=== PATIENT | female | born 1975 | race Caucasian/White ===

== ENCOUNTER 2016-09-06 11:54 | Outpatient (CLI) ==
[2016-02-01 12:25] VITALS: BMI 16.2
[2016-09-06 12:56] LABS: BILIRUBIN,URINE Negative (NEGATIVE); KETONES,URINE Negative (NEGATIVE); LEUKOCYTE ESTERASE ,URINE Negative (NEGATIVE); NITRITE,URINE Negative (NEGATIVE); PH,URINE 5.5 (5-9); PROTEIN,URINE Negative (NEGATIVE); URINE, BLOOD 1+ (NEGATIVE)
[2016-09-06 13:00] LABS: ADD URINE MICROSCOPIC YES
== END 2016-09-06 11:55 | disposition home or self-care (01) ==
LOC: LAB 11:54
PROVIDERS: ATTEND Nurse Practitioner Family
DX: N39.0 Urinary tract infection, site not specified (principal)
CPT/HCPCS: 81001

== ENCOUNTER 2017-03-30 12:53 | Outpatient (CLI) ==
[2016-02-01 12:25] VITALS: BMI 16.2
--- NOTE | 2017-03-30 13:52 | CT ---
EXAM: CT of the abdomen pelvis without contrast History: Abdominal pain. Comparison: CT abdomen pelvis 06/12/2014 Technique: Multiplanar CT images through the abdomen pelvis were obtained without the administration of IV contrast Findings: Lung bases are free of consolidation. No acute osseous abnormalities. There are mild to moderate atherosclerotic vascular calcifications of the abdominal aorta. No renal stones and no hydronephrosis. No focal liver or splenic lesions. No discrete gallstones identified by CT. No peripancreatic inflammation. Adrenal glands are unremarkable. No dilated loops of bowel. Stomach is moderately distended with fluid and debris. The appendix is not dilated or inflamed. Sc attered colonic stool. No bladder wall thickening. Uterus is not seen. No free air. No ascites. Impression: 1. No acute intra-abdominal or pelvic process. 2. Atherosclerotic vascular disease.
== END 2017-03-30 12:54 | disposition home or self-care (01) ==
LOC: RAD 12:53
PROVIDERS: ATTEND Nurse Practitioner Family
DX: R10.817 Generalized abdominal tenderness (principal); R10.9 Unspecified abdominal pain

== ENCOUNTER 2017-03-31 12:44 | Outpatient (CLI) ==
[2016-02-01 12:25] VITALS: BMI 16.2
--- NOTE | 2017-04-03 08:59 | MAMMO ---
EXAM: Bilateral digital screening mammogram History: Baseline screening Findings: MLO and CC views of bilateral breasts demonstrate heterogeneously dense breast parenchyma which can obscure small lesions. Well circumscribed probably benign bilateral nodular densities. Be nign bilateral breast calcifications. No architectural distortions Impression: Probably benign bilateral nodular densities. Recommend 6-month follow-up bilateral mamm ogram to document stability. BIRADS 3
== END 2017-03-31 12:45 | disposition home or self-care (01) ==
LOC: RAD 12:44
PROVIDERS: ATTEND Nurse Practitioner Family
DX: Z12.31 Encounter for screening mammogram for malignant neoplasm of breast (principal)
CPT/HCPCS: 77067

== ENCOUNTER 2017-04-05 07:42 | Outpatient (CLI) ==
[2016-02-01 12:25] VITALS: BMI 16.2
[2017-04-05 08:08] LABS: BASOPHILS % (AUTO) 0.5 % (0.0-3.0); EOSINOPHILS # (AUTO) 0.1 K/ul (0.0-0.7); EOSINOPHILS % (AUTO) 1.3 % (0.0-7.0); HEMATOCRIT 38.9 % (37.0-47.0); HEMOGLOBIN 13.1 g/dl (12.0-16.0); LYMPHOCYTES # (AUTO) 2.9 K/uL (0.60-3.4); LYMPHOCYTES % (AUTO) 48.4 (10.0-50.0); MEAN CORPUSCULAR HEMOGLOBIN 29.9 pg (27.0-31.0); MEAN CORPUSCULAR HGB CONC 33.7 (31.8-35.4); MEAN CORPUSCULAR VOLUME 88.8 fl (81.0-99.0); MONOCYTES # (AUTO) 0.6 K/uL (0.4-2.0); NEUTROPHILS # (AUTO) 2.4 K/ul (2.0-6.9); NEUTROPHILS % (AUTO) 39.8; PLATELET COUNT 193 10^3/uL (140-440); RED BLOOD COUNT 4.38 10^6/ul (4.20-5.40); WHITE BLOOD COUNT 6.07 K/ul (4.6-10.2)
[2017-04-05 08:48] LABS: ALBUMIN 3.6 g/dL (3.4-5.0); ALBUMIN/GLOBULIN RATIO 1.13; ANION GAP 12.5; BILIRUBIN,TOTAL 0.43 mg/dL (0.00-1.20); BUN/CREATININE RATIO 12.85; CALCIUM 9.6 mg/dL (8.2-10.2); CHOL/HDL RATIO 3.7 (4.5-5.5); CREATININE 0.7 mg/dL (0.60-1.30); POTASSIUM 4.5 mmol/L (3.5-5.10); TOTAL PROTEIN 6.8 g/dL (6.4-8.2)
== END 2017-04-05 07:43 | disposition home or self-care (01) ==
LOC: LAB 07:42
PROVIDERS: ATTEND Nurse Practitioner Family
DX: R10.9 Unspecified abdominal pain (principal); R10.817 Generalized abdominal tenderness; Z72.0 Tobacco use
CPT/HCPCS: 36415; 80053; 80061; 84443; 85025

== ENCOUNTER 2017-08-04 07:34 | Outpatient (CLI) ==
[2016-02-01 12:25] VITALS: BMI 16.2
--- NOTE | 2017-08-04 08:27 | US ---
EXAM: ULTRASOUND ABDOMEN COMPLETE HISTORY: Nausea, abdominal pain FINDINGS: Can scale ultrasound and color Doppler was performed. The liver size was measured at about 10 cm, w ithin normal limits. The liver parenchyma demonstrated normal sonographic appearance without evidence of intrahepatic biliary dilatation or focal lesion. Patent and hepatopedal main portal vein. No evidence of gallbladder stones or sludge. Gallbladder wall thickness was normal at 0.18 centimete rs and the common duct diameter was normal at 0.3 centimeters. The visualized portions of the pancreas appeared grossly unremarkable. The visualized aorta and infer ior vena cava had grossly normal caliber. Spleen appeared normal sonographically and measured normal at 8.0 cm. The right kidney measured 9.9 cm and the left kidney 9.1 cm. Renal cortical volume and echogenicity was within normal limits for age. No hydronephrosis seen. IMPRESSION: Findings within normal limits sonographically.
== END 2017-08-04 07:35 | disposition home or self-care (01) ==
LOC: RAD 07:34
PROVIDERS: ATTEND Physician Assistant
DX: R10.9 Unspecified abdominal pain (principal)

== ENCOUNTER 2017-08-08 07:48 | Outpatient (CLI) ==
[2016-02-01 12:25] VITALS: BMI 16.2
--- NOTE | 2017-08-08 10:54 | CT ---
EXAM: CT abdomen pelvis with and without contrast HISTORY: Abdominal pain after bowel movement. Patient with history of endometriosis, hysterectomy a nd previous surgery for adhesion removal. COMPARISON: Abdominal ultrasound 08/04/[address] abdomen and 2016 with multiple priors TECHNIQUE: Serial axial images of the abdomen pelvis were performed before and after 100 mL is of Om nipaque IV contrast was administered. These were obtained from the lung bases through the inferior p be. FINDINGS: The lung bases are clear. The liver is unremarkable. No focal hepatic lesion. The gallbladder is normal. The adrenal glands are normal. Kidneys are normal. The spleen is normal. The pancreas is unremarkable. Stomach is mi ldly distended. Small bowel in the abdomen pelvis is unremarkable with no evidence of obstruction. The colon is unrem arkable with a decompressed cecum. There is no free fluid, free air or lymphadenopathy in the pelvis . There has been a hysterectomy. Urinary bladder is unremarkable. The osseous structures are unrema rkable. IMPRESSION: 1. No acute intra-abdominal or pelvic process to account for patient's symptoms. 2. Changes of prior hysterectomy.
== END 2017-08-08 07:49 | disposition home or self-care (01) ==
LOC: RAD 07:48
PROVIDERS: ATTEND Physician Assistant
DX: R10.9 Unspecified abdominal pain (principal)

== ENCOUNTER 2017-12-17 18:35 | Emergency (ER) | payer OTHER ==
[2017-12-17 18:46] VITALS: BP 111/76; TEMP 99.2; BMI 17.2
--- NOTE | 2017-12-17 19:23 | ED.PDOC ---
General ED Provider: Dr. PATITO BANERJEE-ER Chief Complaint: Foot Pain/Injury Stated Complaint: i fell -my foot and ankle hurt--- Time Seen by Physician: 18:40 Mode of Arrival: Wheelchair Information Source: Patient Exam Limitations: No limitations Primary Care Provider: JC MATIAS Nursing and Triage Documentation Reviewed and Agree: Yes Reviewed sepsis parameters & appropriate labs ordered?: Yes System Inflammatory Response Syndrome: Not Applicable Sepsis Protocol: For patient's 13 years and over: Temp is 96.8 and below OR 101 and greater Pulse >90 BPM Resp >20/minute Acutely Altered Mental Status Are patient's symptoms suggestive of a new infection, such as: -Pneumonia -Skin, Soft Tissue -Endocarditis -UTI -Bone, Joint Infection -Implantable Device -Acute Abdominal Infection -Wound Infection -Meningitis -Blood Stream Catheter Infection -Unknown Musculoskeletal Complaint Exam - Ankle/Foot Complaint/Exam Location of Injury: Reports: Right, Ankle, Foot Mechanism of Injury: Reports: Trauma Symptoms Are: Reports: Still present Onset of Pain: Reports: Immediate Initial Severity: Mild Current Severity: Mild Location: Reports: Discrete Character: Reports: Dull, Aching Alleviating: Reports: None Aggravating: Reports: Movement, Weight bearing, Prolonged standing Able to Bear Weight: Yes Associated Signs and Symptoms: Reports: Swelling, Bruising Lower Extremity Findings: Present: Swelling, Ecchymosis, Tenderness, Limited range of motion Achilles Tendon Abnormality: No Tenderness: Present: Medial malleolus, Lateral malleolus, Heel, Midfoot Limited Range of Motion: Present: Inversion, Eversion, Dorsiflexion, Plantarflexion Differential Diagnosis: Contusion, Closed Fracture Review of Systems - Review Of Systems Constitutional: Reports: No symptoms Eyes: Reports: No symptoms Ears, Nose, Mouth, Throat: Reports: No symptoms Respiratory: Reports: No symptoms Cardiac: Reports: No symptoms GI: Reports: No symptoms : Reports: No symptoms Musculoskeletal: Reports: Joint swelling, Muscle pain Skin: Reports: No symptoms Neurological: Reports: No symptoms Endocrine: Reports: No symptoms Hematologic/Lymphatic: Reports: No symptoms All Other Systems: Reviewed and Negative Past Medical History - Past Medical History Previously Healthy: Yes Endocrine: Reports: None Cardiovascular: Reports: None Respiratory: Reports: None Hematological: Reports: None Gastrointestinal: Reports: None Genitourinary: Reports: None Neuro/Psych: Reports: Seizure Musculoskeletal: Reports: None Cancer: Reports: None Last Menstrual Period: hysterectomy - Surgical History General Surgical History: Reports: Hysterectomy - Family History Family History: Reports: Unknown - Social History Smoking Status: Current every day smoker, Light tobacco smoker Hx Substance Use: No Alcohol Screening: None - Immunizations Tetanus Shot up to Date: No Physical Exam - Physical Exam Appearance: Well-appearing, No pain distress, Well-nourished Pain Distress: Mild Eyes: MEETA, EOMI, Conjunctiva clear ENT: Ears normal, Nose normal, Oropharynx normal Neck: Supple Respiratory: Airway patent, Breath sounds clear, Breath sounds equal, Respirations nonlabored Cardiovascular: RRR, Pulses normal, No rub, No murmur GI/: Soft, Nontender, No masses, Bowel sounds normal, No Organomegaly Musculoskeletal: Limited ROM Skin: Warm Neurological: Sensation intact Psychiatric: Affect appropriate, Mood appropriate Interpretation - Radiology Interpretation Radiology Interpretation By: Radiologist Radiology Results: Positive Exam Interpreted: CT Scan Procedures - Splinting Location: right foot Hand-Made Type: Orthoglass Splint: Posterior walking Pre-Proc Neuro Vasc Exam: Normal Post-Proc Neuro Vasc Exam: Normal Critical Care Note - Critical Care Note Total Time (mins): 0 Course - Course Orders, Labs, Meds: Orders Category Date Time Status CRUTCHES [ED CRUTCHES] .ONCE EMERGENCY 12/17/17 20:00 Active Ice [ED APPLY ICE AFFECTED AREA] .ONCE EMERGENCY 12/17/17 18:41 Active Splint [ED SPLINT APPLICATION] .ONCE EMERGENCY 12/17/17 19:59 Active Hydrocodone Bit/Acetaminophen [[place] 7.5-325] MEDS 12/17/17 19:59 Discontinued 1 tab PO ONCE STA CT ANKLE RIGHT WO CONTRAST Stat RADS 12/17/17 18:[address] CERVICAL SPINE W/O CONTRAST Stat RADS 12/17/17 19:[address] FOOT RIGHT WITHOUT CONTRAST Stat RADS 12/17/17 18:[address] HEAD W/O CONTRAST Stat RADS 12/17/17 19:25 Completed Medications Discontinued Medications Generic Name Dose Route Start Last Admin Trade Name Freq PRN Reason Stop Dose Admin Hydrocodone Bitart/Acetaminophen 1 tab 12/17/17 19:59 12/17/17 20:05 [place] 7.5-325 PO 12/17/17 20:00 1 tab ONCE STA Administration we asked her about drug allergies--she says now she can take norco ) Vital Signs: Temp Pulse Resp BP Pulse Ox 12/17/17 18:36 99.2 F 91 H 20 111/76 99 Departure - Departure Time of Disposition: 20:01 Disposition: HOME SELF-CARE Discharge Problem: Cuboid syndrome of right foot Navicular fracture, foot Qualifiers: Encounter type: initial encounter Fracture type: closed Fracture alignment: nondisplaced Laterality: right Qualified Code(s): S92.254A - Nondisplaced fracture of navicular [scaphoid] of right foot, initial encounter for closed fracture Calcaneus fracture, right Qualifiers: Encounter type: initial encounter Calcaneus location: unspecified portion of calcaneus Fracture type: closed Fracture alignment: nondisplaced Qualified Code( s): S92.001A - Unspecified fracture of right calcaneus, initial encounter for closed fracture Instructions: Foot Fracture in Adults (ED) Condition: Good Pt referred to PMD for follow-up: Yes IPMP verified?: No Additional Instructions: norco 7.5mg q 4hrs prn pain #10--take copies of xrays and go to ortho walk in clinic tomorrow--no weight bearing until seen by orthopedics Allergies/Adverse Reactions: Allergies hydromorphone HCl [From Dilaudid] Allergy (Severe, Verified 12/17/17 18:43) facial swelling per patient acetaminophen [From [place]] Allergy (Mild, Verified 12/17/17 18:43) sick to stomach hydrocodone bitartrate [From [place]] Allergy (Mild, Verified 12/17/17 18:43) sick to stomach morphine Adverse Reaction (Verified 12/17/17 18:43) Home Medications: Ambulatory Orders Cyclobenzaprine HCl [Flexeril] 5 mg PO BID PRN #20 tablet 01/25/16 Clonazepam [Klonopin] 1 mg PO BID 12/17/17 Divalproex Sodium [Depakote] 500 mg PO BID 12/17/17 Disposition Discussed With: Patient, Family
--- NOTE | 2017-12-17 19:51 | CT ---
EXAM: CT right foot without intravenous contrast 12/17/2017. Sagittal and coronal reformatted image s obtained HISTORY: Fall COMPARISON: 10/17/2015 FINDINGS: No gross soft tissue abnormality. Small avulsion fracture fragment is present at the dorsal surface of the navicular. Additional small avulsion fracture fragment is present at the asuperior and lateral aspect of the dis olga calcaneus. This can be seen on sagittal series image 24. Additional small avulsion fracture fragment can be seen at the lateral aspect of the base of the cubo id. This is best seen on coronal series image 20. The remaining visualized osseous structures appear intact. IMPRESSION: 1. Small avulsion fracture at the dorsal aspect of the navicular. 2. Additional small avulsion fragment at the superior and lateral aspect of the distal calcaneus. Th is is best seen on sagittal series image 24. 3. Additional small avulsion fracture fragment at the lateral aspect of the base of the cuboid. Thi s is best seen on coronal series image 20.
--- NOTE | 2017-12-17 19:52 | CT ---
EXAM: CT right ankle without contrast HISTORY: Fall COMPARISON: None TECHNIQUE: CT right ankle performed without intravenous contrast. Coronal and sagittal reformatted images obtained. FINDINGS: Small avulsion fracture of the navicular. Small avulsion fracture anterior lateral aspect calcaneus. Small avulsion base of cuboid that seen on CT foot. Tibia and fibula appear normal. Ankl e mortise symmetric. IMPRESSION: Small avulsion fractures of the navicular, calcaneus, and cuboid.
[2017-12-17] MEDS ORDERED: NORCO 7.5-325 PO STA (19:59)
--- NOTE | 2017-12-17 20:21 | CT ---
Exam: CT of the brain without intravenous contrast. Comparison: MRI of the brain performed 10/04/2017. Reason for exam: Head injury FINDINGS: No acute intracranial hemorrhage, mass effect, ventricular dilatation, or territorial infa rction. The quadrigeminal and ambient cisterns are patent. There is no extraaxial fluid collection. The calvarium is intact without depressed skull fracture. There is mucosal thickening in the ethmo id sinuses. Parenchymal changes are seen consistent with chronic microvascular disease Impression: 1. No acute intracranial findings. 2. Parenchymal changes consistent with chronic microvascular disease. 3. Mucosal thickening in the ethmoid sinuses.
--- NOTE | 2017-12-17 20:30 | CT ---
EXAM: CT cervical spine without contrast HISTORY: Fell, struck head COMPARISON: None TECHNIQUE: CT cervical spine performed without intravenous contrast. Coronal and sagittal reformatt ed images were obtained. FINDINGS: The vertebral bodies normal height. No fracture. No subluxation. Mild intervertebral di sc space narrowing C5-C6. Posterior disc osteophyte complex C5-C6 causing mild central canal and mil d to moderate left neural foraminal narrowing. Prevertebral soft tissues appear normal. Emphysema nash g apices. IMPRESSION: 1. No fracture or subluxation. 2. Chronic discogenic degenerative disease. 3. Emphysema.
== END 2017-12-17 20:40 | disposition home or self-care (01) ==
LOC: ED 18:35
DX: S92.254A Nondisplaced fracture of navicular [scaphoid] of right foot, initial encounter for closed fracture (principal); S92.001A Unspecified fracture of right calcaneus, initial encounter for closed fracture; S92.214A Nondisplaced fracture of cuboid bone of right foot, initial encounter for closed fracture; W19.XXXA Unspecified fall, initial encounter; F17.210 Nicotine dependence, cigarettes, uncomplicated
CPT/HCPCS: 99283

== ENCOUNTER 2017-12-19 13:40 | Emergency (ER) ==
[2017-12-19 13:40] VITALS: BMI 16.2
[2017-12-19 13:51] VITALS: BP 100/68; TEMP 99.5
--- NOTE | 2017-12-19 14:05 | ED.PDOC ---
General ED Provider: Dr. ZULMA GARY Chief Complaint: Elbow Pain/Injury Stated Complaint: Pt presents with c/o left elbow pain and skin tear around the left elbow. Pt states that she fell backforward from her wheelchair without LOC and head injury at that time. Pt states that she is unable to bend on the left elbow withoug pain. PT states that she broke her right ankle two days ago and had splint on the ankle and she will see an ortho tomorrow. Time Seen by Physician: 13:45 Mode of Arrival: Walk-In Information Source: Patient Exam Limitations: No limitations Primary Care Provider: JC MATIAS Nursing and Triage Documentation Reviewed and Agree: Yes Reviewed sepsis parameters & appropriate labs ordered?: Yes System Inflammatory Response Syndrome: Not Applicable Sepsis Protocol: For patient's 13 years and over: Temp is 96.8 and below OR 101 and greater Pulse >90 BPM Resp >20/minute Acutely Altered Mental Status Are patient's symptoms suggestive of a new infection, such as: -Pneumonia -Skin, Soft Tissue -Endocarditis -UTI -Bone, Joint Infection -Implantable Device -Acute Abdominal Infection -Wound Infection -Meningitis -Blood Stream Catheter Infection -Unknown Musculoskeletal Complaint Exam - Elbow Pain Complaint/Exam Onset/Duration: 1 day Symptoms Are: Still present Onset of Pain: Reports: Immediate Initial Severity: Mild Current Severity: Moderate Character: Reports: Dull, Stiffness Aggravating: Reports: Movement Associated Signs and Symptoms: Reports: Swelling. Denies: Redness, Bruising, Fever, Weakness, Numbness, Tingling Related Surgical History: Reports: None Elbow Findings: Present: Swelling Tenderness: Present: Medial Condyle, Lateral Condyle, Olecranon, Radial Head Limited Range of Motion: Present: Flexion Differential Diagnoses: Closed Fracture Review of Systems - Review Of Systems Constitutional: Reports: No symptoms Eyes: Reports: No symptoms Ears, Nose, Mouth, Throat: Reports: No symptoms Respiratory: Reports: No symptoms Cardiac: Reports: No symptoms GI: Reports: No symptoms : Reports: No symptoms Musculoskeletal: Reports: Joint swelling (swelling on the left elbow joint ) Skin: Reports: No symptoms Neurological: Reports: No symptoms Endocrine: Reports: No symptoms Hematologic/Lymphatic: Reports: No symptoms All Other Systems: Reviewed and Negative Past Medical History - Past Medical History Previously Healthy: Yes Endocrine: Reports: None Cardiovascular: Reports: None Respiratory: Reports: None Hematological: Reports: None Gastrointestinal: Reports: None Genitourinary: Reports: None Neuro/Psych: Reports: Seizure Musculoskeletal: Reports: None Cancer: Reports: None Last Menstrual Period: hysterectomy - Surgical History General Surgical History: Reports: Hysterectomy - Family History Family History: Reports: Unknown - Social History Smoking Status: Current every day smoker, Light tobacco smoker Hx Substance Use: No Alcohol Screening: None Physical Exam - Physical Exam Appearance: No pain distress Ill-appearing: None Pain Distress: None Eyes: MEETA, EOMI, Conjunctiva clear ENT: Ears normal, Nose normal, Oropharynx normal Respiratory: Airway patent, Breath sounds clear, Breath sounds equal, Respirations nonlabored Cardiovascular: RRR, Pulses normal, No rub, No murmur GI/: Soft, Nontender, No masses, Bowel sounds normal, No Organomegaly Musculoskeletal: Limited ROM (on the left elbow ) Skin: Warm, Dry, Normal color Neurological: Sensation intact, Motor intact, Reflexes intact, Cranial nerves intact, Alert, Oriented Psychiatric: Affect appropriate, Mood appropriate Critical Care Note - Critical Care Note Total Time (mins): 0 Course - Course Orders, Labs, Meds: Orders Category Date Time Status ELBOW, LEFT MIN 3 VIEWS Stat RADS 12/19/17 14:01 Completed Vital Signs: Temp Pulse Resp BP Pulse Ox 12/19/17 13:40 99.5 F 81 20 100/68 95 Departure - Departure Time of Disposition: 14:55 Disposition: HOME SELF-CARE Discharge Problem: Elbow joint pain Instructions: Arthralgia (ED), Elbow Sprain (ED) Condition: Good Pt referred to PMD for follow-up: Yes IPMP verified?: No Allergies/Adverse Reactions: Allergies hydromorphone HCl [From Dilaudid] Allergy (Severe, Verified 12/19/17 13:49) facial swelling per patient morphine Adverse Reaction (Verified 12/19/17 13:49) Home Medications: Ambulatory Orders Cyclobenzaprine HCl [Flexeril] 5 mg PO BID PRN #20 tablet 01/25/16 Clonazepam [Klonopin] 1 mg PO BEDTIME 12/17/17 Divalproex Sodium [Depakote] 500 mg PO BID 12/17/17 Hydrocodone/Acetaminophen [[place] 7.5-325 Tablet] 1 each PO Q4-6H PRN 12/19/17
--- NOTE | 2017-12-19 14:34 | DI ---
EXAM: Radiographs, left elbow HISTORY: Initial presentation for left elbow trauma. COMPARISON: None available. TECHNIQUE: Three views. FINDINGS: Bone mineralization is normal. There is no fracture or dislocation. The joint spaces are maintained. Elbow joint effusion noted. No focal soft tissue abnormality is seen. IMPRESSION: Elbow joint effusion without fracture or dislocation.
== END 2017-12-19 15:10 | disposition home or self-care (01) ==
LOC: ED 13:40
DX: M25.522 Pain in left elbow (principal); M25.422 Effusion, left elbow; S51.802A Unspecified open wound of left forearm, initial encounter; W05.0XXA Fall from non-moving wheelchair, initial encounter; F17.210 Nicotine dependence, cigarettes, uncomplicated
CPT/HCPCS: 99282

== ENCOUNTER 2018-08-30 12:27 | Outpatient (CLI) ==
--- NOTE | 2018-08-30 13:15 | DI ---
EXAM: CHEST FRONTAL AND LATERAL VIEWS HISTORY: Pneumonia. COMPARISON: 06/12/2014 FINDINGS: Heart size and mediastinal contour remain within normal limits. Lungs are hyperinflated . There is subtle density superimposed over the cardiac silhouette on the lateral projection which w as not seen previously. This may indicate mild right middle lobe pneumonia given the appearance of t he frontal view. Lungs are otherwise clear. No pleural fluid or vascular congestion. IMPRESSION: 1. Probable mild middle lobe pneumonia. Hyperinflation.
== END 2018-08-30 12:28 | disposition home or self-care (01) ==
LOC: RAD 12:27
PROVIDERS: ATTEND Nurse Practitioner Family
DX: J18.9 Pneumonia, unspecified organism (principal)

== ENCOUNTER 2018-09-17 09:36 | Outpatient (CLI) ==
--- NOTE | 2018-09-17 10:06 | DI ---
EXAM: PA and lateral views of the chest HISTORY: Evaluate for pneumonia COMPARISON: Chest x-ray 08/30/[address] chest 01/24/2016 FINDINGS: The cardiomediastinal silhouette is normal. There is no pneumothorax or pleural effusion. There is no consolidation, nodule or mass. The osseous structures are unremarkable. IMPRESSION: No acute cardiopulmonary process
== END 2018-09-17 09:37 | disposition home or self-care (01) ==
LOC: RAD 09:36
PROVIDERS: ATTEND Nurse Practitioner Family
DX: J18.9 Pneumonia, unspecified organism (principal)

== ENCOUNTER 2018-11-21 17:01 | Outpatient (CLI) ==
--- NOTE | 2018-11-22 09:16 | DI ---
EXAM: CHEST FRONTAL AND LATERAL VIEWS HISTORY: Cough, fever. COMPARISON: 09/17/2018 FINDINGS: Heart size and mediastinal contour remain within normal limits. Lungs are hyperinflated . No acute infiltrates are seen. No vascular congestion. There is no consolidation, visible pleura l fluid or pneumothorax. Bones reveal no acute fracture. IMPRESSION: No acute cardiopulmonary process.
== END 2018-11-21 17:02 | disposition home or self-care (01) ==
LOC: RAD 17:01
PROVIDERS: ATTEND Nurse Practitioner Family
DX: R05 Cough (principal)